=== PATIENT | male | born 1965 | race Caucasian/White ===

== ENCOUNTER 2018-07-03 18:23 | Emergency (ER) | payer SELFPAY ==
[2018-07-03 18:24] VITALS: BP 159/99; PULSE 96; RESP 16; TEMP 36.8; O2SAT 99; BMI 28.3
--- NOTE | 2018-07-03 18:40 | RAD_ITS ---
STUDY: X-RAY - RIGHT RADIUS AND ULNA REASON FOR EXAM: Male, 53 years old. Right-sided forearm pain. TECHNIQUE: AP and lateral view(s) of the forearm. COMPARISON: Prior comparison studies are not available for review at this time. FINDINGS: There is mild soft tissue swelling of the proximal forearm. No anterior or posterior fat pad signs are visible at the elbow. Normal visualized radius. Normal visualized ulna. There is no demonstrated acute fracture. RAD/Forearm 2 Views IMPRESSION: Soft tissue swelling without radiographic evidence for acute fracture. If there is still clinical concern for acute fracture, follow-up radiographs in 7-10 days maybe helpful in evaluating a healing radiographically occult fracture. Electronically Signed: Candy Quintaan MD at 19:40 EST , Service support ,
--- NOTE | 2018-07-03 19:21 | ED.DCSUM_ITS ---
- ER Visit Summary Date of Service: 07/03/18 Chief Complaint: Right wrist injury History of Present Illness: The patient is a 53 M who states that earlier today slipped on the ice falling forward on outstretched hand injuring the right wrist. He notes pain over the medial aspect of the distal wrist. He notes skin abrasions. Tells me his tetanus is up-to-date. Denies any other injuries. Physical Examination: Afebrile vital signs stable There are professional abrasions to the dorsal lateral aspect of the right wrist. Patient has full supination and pronation. The patient has tenderness over the ulnar styloid. No obvious deformity. Neurovascular intact distally Test Results: Forearm films ordered through nursing protocol were negative for fracture. Emergency Department Course and Treatment: Patient's wounds were cleansed and dressed. He will be discharged home with instructions for ice ibuprofen and local wound care. Follow-up 10-14 days if not improved Impression: 1. Right wrist sprain 2. Right wrist abrasions This note was generated with Tamago dictation software. It may contain incorrect words, spelling, and punctuation that were not noted in review of the chart chuckie or to signing ED Disposition - Plan for ED Patient: Disposition: Home or Assisted Living Chief Complaint: Upper Extremity Injury Instructions: ED Sprain Wrist Referrals: Dane Quintana MD [STAFF PHYSICIAN] - 10-14 Days if not better
[2018-07-03 19:40] VITALS: BP 138/89; PULSE 89; RESP 16; O2SAT 97
--- OUTSIDE RECORDS SUMMARY | 2018-08-29 10:03 | XMS RPT_ITS ---
:1965 Author Organization [facility] Care Team Providers Name Role Phone Noé Lan Attending Unavailable Primay Care Physicia, No Primary Care Unavailable PROBLEMS PROBLEMS No Problem Records FoundPROCEDURES PROCEDURES No Procedure Records FoundRESULTS RESULTS EMERGENCY DEPARTMENT Observed: 07/05/2018 Status: F Source: [place] SUMMARY 8:16 AM [facility] REPOSITORY [facility] Medical Records Department [address] [place] [address] Emergency Department Summary 07/03/18 1919 MR#: [id number] Acct: [id number] Name: ANDREW SAEZ Rep #: [id number] : 1965 53 From: Noé Lan DO PCP: Care Physician, No Primary Status: DEP ER - ER Visit Summary Date of Service: 07/03/18 Chief Complaint: Right wrist injury History of Present Illness: The patient is a 53 M who states that earlier today slipped on the ice falling forward on outstretched hand injuring the right wrist. He notes pain over the medial aspect of the distal wrist. He notes skin abrasions. Tells me his tetanus is up-to-date. Denies any other injuries. Physical Examination: Afebrile vital signs stable There are professional abrasions to the dorsal lateral aspect of the right wrist. Patient has full supination and pronation. The patient has tenderness over the ulnar styloid. No obvious deformity. Neurovascular intact distally Test Results: Forearm films ordered through nursing protocol were negative for fracture. Emergency Department Course and Treatment: Patient's wounds were cleansed and dressed. He will be discharged home with instructions for ice ibuprofen and local wound care. Follow-up 10-14 days if not improved Impression: 1. Right wrist sprain 2. Right wrist abrasions This note was generated with [employer] dictation software. It may contain incorrect words, spelling, and punctuation that were not noted in review of the chart prior to signing ED Disposition - Plan for ED Patient: Disposition: Home or Assisted Living Chief Complaint: Upper Extremity Injury Instructions: ED Sprain Wrist Referrals: Dane Quintana MD [STAFF PHYSICIAN] - 10-14 Days if not better What to do if you have Problems For any increased pain, shortness of breath, bleeding, nausea or vomiting, chest pain, or any unexpected problems, contact your Primary Care Provider. Call [facility] ([phone]) or report to the closest Emergency Room. Call 911 if necessary. 07/05/18 0816 <Electronically signed by Noé Lan DO> Date Noé Lan DO Cosigner Signature (If Indicated): Date CC: No Primary Care Physician FOREARM 2 VIEWS Observed: 07/03/2018 Status: F Source: [place] 6:35 PM [facility] REPOSITORY [facility] Imaging Services [address] [place] [id number] Forearm 2 Views MR#: [id number] Acct: [id number] Name: ANDREW SAEZ Rep #: [id number] : 1965 M 53 From: Candy Quintana MD PCP: Care Physician, No Primary Status: REG ER Study: Forearm 2 Views Date of Exam: 07/03/18 Exam# [id number] Ordering Dr: Noé Lan DO STUDY: X-RAY - RIGHT RADIUS AND ULNA REASON FOR EXAM: Male, 53 years old. Right-sided forearm pain. TECHNIQUE: AP and lateral view(s) of the forearm. COMPARISON: Prior comparison studies are not available for review at this time. FINDINGS: There is mild soft tissue swelling of the proximal forearm. No anterior or posterior fat pad signs are visible at the elbow. Normal visualized radius. Normal visualized ulna. There is no demonstrated acute fracture. RAD/Forearm 2 Views IMPRESSION: Soft tissue swelling without radiographic evidence for acute fracture. If there is still clinical concern for acute fracture, follow- up radiographs in 7-10 days maybe helpful in evaluating a healing radiographically occult fracture. Electronically Signed: Candy Quintana MD at 19:40 EST , Service support , CC: No Primary Care Physician; Noé Lan DO Wet Press Tender: Signed ALLERGIES ALLERGIES DATE TYPE / CODE NAME / CODE REACTION SEVERITY SOURCE 07/03/2018 Drug No Known Unknown [facility] Allergy/4160 Allergies/F00 [facility] 39425(SNOMED [id number](RXNOR Repository CT) M) ENCOUNTERS ENCOUNTERS ADMIT/DISCHARGE ACCOUNT ADMITTING ENCOUNTER LOCATION SOURCE NUMBER CLASS 07/03/2018/ [id number] [facility] ing:ED Repository PAYERS PAYERS ENCOUNTER GUARANTOR PAYER SUBSCRIBER SOURCE 07/03/2018 ANDREW SAEZ340 Primary [facility]SELF [facility] [id number]: [phone]) Number: Effective Repository [phone] () Date:2018-07-03
== END 2018-07-03 19:41 | disposition home or self-care (01) ==
PROVIDERS: Emergency Provider Emergency Medicine
DX: S63.501A Unspecified sprain of right wrist, initial encounter (principal); S60.811A Abrasion of right wrist, initial encounter; W00.0XXA Fall on same level due to ice and snow, initial encounter; Y93.9 Activity, unspecified; Z72.0 Tobacco use
CPT/HCPCS: 73090; 99282